=== PATIENT | female | born 1995 | race Two or more races ===

== ENCOUNTER 2021-08-11 13:11 | Emergency (ER) | payer OTHER ==
[~2021-08-11] VITALS: Ht 175.3 cm; Wt 73.5 kg
[2021-08-11] MEDS ORDERED: LIDOCAINE 1% HCL (LOCAL ANESTH.) INJ 20ML MDV ONE (13:54)
[2021-08-11 14:36] VITALS: BP 103/83
[2021-08-11] MEDS ORDERED: TETANUS-DIPTH-ACEL PERTUSSIS 0.5ML SYR Tdap IM ONE (14:45)
[2021-08-11] MEDS ORDERED: NAPR500T31 PO (15:13)
[2021-08-11] MEDS ORDERED: CEPH500C PO (15:13)
== END 2021-08-11 15:23 | disposition home or self-care (01) ==
LOC: ER 13:11
DX: S61.412A Laceration without foreign body of left hand, initial encounter (principal); W26.0XXA Contact with knife, initial encounter; Y93.89 Activity, other specified; Y92.89 Other specified places as the place of occurrence of the external cause; Y99.8 Other external cause status
CPT/HCPCS: 12002; 90471; 90715; 99283; J2001

== ENCOUNTER 2021-08-13 11:26 | Emergency (ER) | payer OTHER ==
[~2021-08-13] VITALS: Ht 157.5 cm; Wt 86.2 kg
[~2021-08-13 11:26] MED LIST: CEPH500C PO; NAPR500T31 PO
[2021-08-13 13:04] VITALS: BP 127/68
== END 2021-08-13 13:11 | disposition home or self-care (01) ==
LOC: ER 11:26 → EDUNIT# 11:26 → ER 13:11
DX: S61.412D Laceration without foreign body of left hand, subsequent encounter (principal); W26.0XXD Contact with knife, subsequent encounter